=== PATIENT | male | born 2000 | race Caucasian/White ===

== ENCOUNTER 2021-04-26 11:50 | Emergency (ER) | payer OTHER, SELFPAY ==
[2021-04-26 12:04] VITALS: BP 127/68; PULSE 102; RESP 16; TEMP 37.3; O2SAT 99
--- NOTE | 2021-04-26 12:06 | ED.URI ---
HPI - URI/Sore Throat General Chief Complaint: Upper Respiratory Infection Stated Complaint: Body aches Time Seen by Provider: 04/26/21 12:06 Source: patient and RN notes reviewed Mode of arrival: ambulatory Limitations: no limitations History of Present Illness HPI Narrative: 21-year-old male presents with concern for Covid exposure, body aches and fever. Reports taking DayQuil today. Reports several coworkers are positive for Covid. Reports he requires a Covid test for work. He denies cough, shortness of breath, nausea, vomiting. MD elicited complaint: cough and sore throat Related Data Home Medications Medication Instructions Recorded Confirmed No Home Medications 04/26/21 04/26/21 Allergies Allergy/AdvReac Type Severity Reaction Status Date / Time No Known Allergies Allergy Verified 04/26/21 11:58 Review of Systems Review of Systems: CONSTITUTIONAL: Reports malaise, fever. Denies chills, sweats EYES: Denies visual changes, redness, or discharge. ENT: Denies rhinorrhea, congestion, sinus pain, otalgia and sore throat. CARDIOVASCULAR: Denies chest pain, palpitations, or edema. RESPIRATORY: Reports cough. Denies dyspnea. GASTROINTESTINAL: Denies abdominal pain, nausea, vomiting, diarrhea SKIN: Denies rash or itching. MUSCULOSKELETAL: Reports myalgia. NEUROLOGIC: Reports headache. All systems reviewed & are unremarkable except as noted in HPI and below PMFSH Comments At time of signature, agree with nursing past medical, surgical, social and family history. There is no relevant family history pertinent to the presenting complaint Exam Narrative: GENERAL: Well-appearing, well-nourished, and in no acute distress. HEAD: Normocephalic EYES: PERRLA, conjunctivae clear ENT: Nares clear, clear discharge. Mucous membranes moist. TM pearly lawrence with sharp light reflex bilaterally; no tragal tenderness. Oropharynx not erythematous without lesions. Tonsils not enlarged and without exudate, no drooling, no hoarseness, no trismus, uvula midline. NECK: Supple. No lymphadenopathy CHEST: Clear to auscultation, breath sounds equal. No wheezing, rhonchi, rales, or stridor. No respiratory distress, speaks in full sentences. HEART: Regular rate and rhythm. No murmur heard. SKIN: Warm, dry, no rash. NEURO: Alert and oriented x3. PSYCH: Normal mood and affect Course Course Emergency Course: Patient is aware of diagnosis, understands and agrees to treatment plan. Anticipatory guidance given. Patient agrees to follow-up as directed and is aware of reasons to seek care at the emergency department. Portions of this record may have been created with voice recognition software Level of Care: Express Care Visit Vital Signs Vital signs: Vital Signs Temperature 99.2 F 04/26/21 12:04 Pulse Rate 102 H 04/26/21 12:04 Respiratory Rate 16 04/26/21 12:04 Blood Pressure 127/68 04/26/21 12:04 Pulse Oximetry 99 04/26/21 12:04 Temperature 99.2 F 04/26/21 12:04 Pulse Rate 102 H 04/26/21 12:04 Respiratory Rate 16 04/26/21 12:04 Blood Pressure 127/68 04/26/21 12:04 Pulse Oximetry 99 04/26/21 12:04 Reviewed. MDM - URI/Sore Throat MDM Narrative Medical decision making narrative: Differential diagnosis considered: [place] virus, strep pharyngitis, allergic rhinitis, upper respiratory tract infection, sinusitis, rhinosinusitis, nasopharyngitis. viral pharyngitis, otitis media, otitis externa, pneumonia, bronchitis, viral cough syndrome, viral syndrome, and influenza. Exam findings show no acute concerns or changes; patient is non-toxic appearing and is in no distress. Patient is appropriate for outpatient treatment and follow-up. Lab Data Attestation: I reviewed the patient's lab results. Critical Care Time Critical Care Time Critical Care Time: No Discharge Plan Discharge Clinical Impression: COVID-19 Patient Disposition: Home, Self-Care Condition: Stable Instructions: How to Recover from COV
== END 2021-04-26 12:23 | disposition home or self-care (01) ==
PROVIDERS: Emergency Provider Nurse Practitioner
DX: U07.1 COVID-19 (principal)
CPT/HCPCS: 87426; 99213; C9803; G0463

== ENCOUNTER 2021-08-28 12:39 | Emergency (ER) | payer OTHER, SELFPAY ==
[2021-08-28] VITALS (11 sets, daily range): BP systolic 129–169; BP diastolic 70–98; PULSE 88; RESP 18; TEMP 36.7; O2SAT 93–100
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
== END 2021-08-28 14:55 | disposition left against medical advice (07) ==
PROVIDERS: Emergency Provider Emergency Medicine
DX: T59.811A Toxic effect of smoke, accidental (unintentional), initial encounter (principal); J45.909 Unspecified asthma, uncomplicated
CPT/HCPCS: 99281

== ENCOUNTER 2021-08-30 12:56 | Emergency (ER) | payer OTHER, SELFPAY ==
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
[2021-08-30 13:10] VITALS: BP 134/80; PULSE 105; RESP 16; TEMP 36.4; O2SAT 100
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
== END 2021-08-30 13:37 | disposition home or self-care (01) ==
PROVIDERS: Emergency Provider Registered Nurse
DX: T59.811A Toxic effect of smoke, accidental (unintentional), initial encounter (principal); J45.901 Unspecified asthma with (acute) exacerbation
CPT/HCPCS: 71046; 99213; G0463

== ENCOUNTER 2022-02-20 18:51 | Emergency (ER) | payer OTHER, SELFPAY ==
--- NOTE | 2022-02-20 18:53 | ED.SKABFB ---
HPI - Skin/Abscess/Foreign Bdy General Chief complaint: Skin/Abscess/Foreign Body Stated complaint: Lt Inner Leg Redness and Swelling Time Seen by Provider: 02/20/22 19:05 Source: patient and RN notes reviewed Mode of arrival: ambulatory Limitations: no limitations History of Present Illness HPI narrative: 22-year-old male presents concern for this redness, swelling to his left knee. He reports he did by a mosquito yesterday, he killed the insect. He reports he has a history of having well like reaction to mosquito bites. He reports this bite is itchy, warm. He denies tenderness, he reports that the area feels strange when he walks. He denies swollen lips, swollen tongue, trouble breathing. He denies general malaise, fever, body aches, chills, sweats. He denies intervention. MD complaint: insect bite/sting Related Data Allergies Allergy/AdvReac Type Severity Reaction Status Date / Time No Known Allergies Allergy Verified 02/20/22 19:06 Review of Systems Review of Systems: CONSTITUTIONAL: Denies malaise, chills, sweats, or fever. EYES: Denies redness, or discharge. ENT: Denies rhinorrhea, congestion, swollen lips, swollen tongue CARDIOVASCULAR: Denies chest pain, palpitations, or edema. RESPIRATORY: Denies cough or dyspnea. GASTROINTESTINAL: Denies abdominal pain, nausea, vomiting SKIN: Reports red itchy raised area on his left knee MUSCULOSKELETAL: Denies joint pain or myalgia. NEUROLOGIC: Denies headache. All systems reviewed & are unremarkable except as noted in HPI and below PMFSH Past Medical History Medical History (Updated 02/20/22 @ 19:14 by Tere Myers NP) Asthma Surgical History Surgical History (Updated 08/30/21 @ 13:42 by Nicole Thorpe NP) History of repair of anterior cruciate ligament of left knee History of repair of anterior cruciate ligament of right knee Social History Social History (Updated 08/30/21 @ 13:40 by Nicole Thorpe NP) Smoking status: Never smoker Alcohol intake: current Alcohol use details: Social Substance use type: does not use Gender identity (if verbalized by the patient): Male Comments At time of signature, agree with nursing past medical, surgical, social and family history. There is no relevant family history pertinent to the presenting complaint Exam Narrative: GENERAL: Well-appearing, well-nourished, and in no acute distress. HEAD: Normocephalic, atraumatic. EYES: PERRLA, conjunctivae clear ENT: Mucous membranes moist. NECK: Supple. No lymphadenopathy CHEST: Clear to auscultation. No respiratory distress. HEART: Regular rate and rhythm. SKIN: Warm, dry. 9 cm with some cm circular area of erythema, warmth about induration, tenderness, fluctuation or drainage is noted to left medial knee NEURO: Alert and oriented x3. PSYCH: Normal mood and affect Course Course Emergency Course: Patient is aware of diagnosis, understands and agrees to treatment plan. Anticipatory guidance given. Patient agrees to follow-up as directed and is aware of reasons to seek care at the emergency department. Portions of this record may have been created with voice recognition software Level of Care: Express Care Visit Vital Signs Vital signs: Reviewed. MDM - Skin/Abscess/Foreign Bdy MDM Narrative Medical decision making narrative: Exam findings show no acute concerns or changes; patient is non-toxic appearing and is in no distress. Patient is appropriate for outpatient treatment and follow-up. Differential Diagnosis Differential diagnosis: Likely viral exanthem, urticaria, cellulitis and insect bites Critical Care Time Critical Care Time Critical Care Time: No Discharge Plan Discharge Clinical Impression: Insect bite of knee with local reaction Qualifiers: Encounter type: initial encounter Laterality: left Qualified Code(s): S80.262A - Insect bite (nonvenomous), left knee, initial encounter Patient Disposition: Home, Self-Care Condition: St
[2022-02-20 19:01] VITALS: BP 137/75; PULSE 85; RESP 16; TEMP 36.4; O2SAT 100
== END 2022-02-20 19:18 | disposition home or self-care (01) ==
PROVIDERS: Emergency Provider Nurse Practitioner
DX: S80.262A Insect bite (nonvenomous), left knee, initial encounter (principal); W57.XXXA Bitten or stung by nonvenomous insect and other nonvenomous arthropods, initial encounter
CPT/HCPCS: 99213; G0463